=== PATIENT | male | born 1960 | race Caucasian/White ===

== ENCOUNTER → 2016-04-30 | Day surgery (SDC) | payer OTHER ==
[~2016-04-30] MED LIST: ESCITALOPRAM OX20 MG PO; FISH OIL 1,0001 CAP PO; LIPITOR20 MG PO; MULTIVITAMIN1 UDCAP PO; NORFLEX100 M1 PO
--- NOTE | ~2016-04-30 | OR ---
Unit #: [id number] #: [id number] Patient: JADYN OLMEDO [id number] [address] [place], [place] [address] [id number] MR#: [id number] NAME: JADYN OLMEDO ROOM: Date of Procedure: 04/30/2016 Admission Date: 04/30/2016 Surgeon: Aryan Schafer Jr., M.D. : 1960 Attending Physician: Aryan Schafer Jr., M.D. Referring Physician: Aryan Schafer Jr., M.D. Primary Care Physician: Ehsan Niño M.D. OPERATIVE REPORT INDICATION FOR PROCEDURE The patient is a 55-year-old white male, recently presented to the office complaining of a left inguinal bulge with some discomfort and pain at times and on examination, he was noted to have a partially reducible left inguinal hernia. He is brought in this time for open repair of this. He understands the procedure including the risks, including that of nerve injury, bleeding, infection, and recurrence of his hernia and consents. He also understands there is a chance of nerve entrapment and chronic pain. PREOPERATIVE DIAGNOSIS Left inguinal hernia. POSTOPERATIVE DIAGNOSIS Left inguinal hernia, noting a large left indirect inguinal hernia with a sliding component of the colon. ANESTHESIA General with LMA and 0.5% Marcaine with epinephrine locally. PROCEDURE PERFORMED Left inguinal hernia repair using plug and patch technique with high ligation of the sac and reduction of the colon. DESCRIPTION OF PROCEDURE The patient was positioned in supine position. After being anesthetized, he was prepped and draped in routine fashion for left inguinal hernia repair. Left inguinal block was performed with 0.25% Marcaine with epinephrine. A small transverse incision was made 3 to 4 inch in length over the left inguinal canal. This was carried down through subcutaneous tissue and down through Ander and Camper fascia and the external oblique fascia. The fibers of external oblique were split from the external ring up to past the internal ring. The cord structures were elevated from the pubic tubercle and freed up to the internal ring. Multiple cremasteric fibers were divided. The ilioinguinal nerve was retracted laterally to avoid any damage or entrapment. There was a large indirect sac present on the cord. The floor of the inguinal canal appeared strong with no evidence of any direct defect. The sac was opened and there was colon plus omental fat within the hernia. The colon was a portion of the wall compatible with sliding inguinal hernia. The colon was freed up with the Metzenbaum scissors and delivered back into the abdomen along with the omentum and the sac high ligated with a 0 Ethibond suture followed by 0 Ethibond transfixion stitch. The redundant portion of sac was excised and Unit #: [id number] #: [id number] Patient: JADYN OLMEDO the stump retracted well up into the internal ring. The extra large plug was placed in the internal ring area and sutured circumferentially with interrupted 0 Ethibond sutures to the fascia and the patch was placed over the floor of the inguinal canal and sutured around the cord and down to the pubic tubercle with interrupted 0 Ethibond sutures. After this was complete, the ilioinguinal nerve was checked and noted to be free with no evidence of any entrapment. The wound was irrigated with antibiotic solution, which was also used to presoak the mesh. After hemostasis was noted, the external oblique fascia was closed over the top of the cord structures and ilioinguinal nerve with a continuous 3-0 Vicryl suture. The Ander and Camper fascia was approximated with interrupted 3-0 Vicryl sutures. Skin edges were approximated with stainless-steel skin clips and skin stapling device. Sterile dressings were applied externally. Estimated blood loss less than 50 mL. The patient received less than 1000 mL crystalloid solution during the procedure. Sponges and instruments counts were correct x3. No drains were used. No complications. The patient was taken to the recovery room with stable vital signs in satisfactory condition. Dictated by... Aryan Schafer Jr., M.D. JMB/joe TD: 05/01/2016 01:40 JOB #: [id number] OPERATIVE REPORT X Aryan Schafer MD X PROCEDURE OPERATIVE NOTE
== END | disposition home or self-care (01) ==
LOC: CSUR 07:02
DX: K40.90 Unilateral inguinal hernia, without obstruction or gangrene, not specified as recurrent (principal); J30.9 Allergic rhinitis, unspecified; F41.8 Other specified anxiety disorders; M51.36 Other intervertebral disc degeneration, lumbar region; E78.5 Hyperlipidemia, unspecified; K58.9 Irritable bowel syndrome, unspecified; Z88.5 Allergy status to narcotic agent
CPT/HCPCS: 88302; J0690; J2250; J2270; J2405; J2765; J3010